=== PATIENT | male | born 1960 | race Caucasian/White ===

== ENCOUNTER 2023-11-22 10:23 | Emergency (ER) | payer OTHER, SELFPAY ==
--- NOTE | ~2023-11-22 | XR_ITS ---
EXAMINATION: XR finger 3rd RT min 2V DATE: 11/22/2023 11:08 INDICATION: Right hand third digit cellulitis. TECHNIQUE: 4 views of right hand third digit were obtained. COMPARISON: None. FINDINGS: Bone alignment is normal. No fracture. There is mild osteoarthritis of third proximal and d istal interphalangeal joints. IMPRESSION: 1. No evidence of osteomyelitis. 2. Mild polyarticular osteoarthritis. Reviewed, dictated and finalized at location A.
--- NOTE | 2023-11-22 10:26 | ED.BURNSMOKE ---
HPI - Burn/Smoke Inhalation General Chief complaint: Wound/Laceration Stated complaint: burn on rt middle finger Time Seen by Provider: 11/22/23 10:25 Source: patient Mode of arrival: ambulatory Limitations: no limitations History of Present Illness HPI Narrative: Ricki is a 63-year-old male patient presenting to the clinic today with complaints of burn to his right middle finger that occurred 4 weeks ago. He reports he was cooking on a charcoal grill and he burned the right middle finger. States the next day the finger blistered and popped. Has been washing with Dial soap and applying Neosporin ointment to the area. Had an old prescription for some amoxicillin 500 mg and he has been taking it 3 times daily.. Tetanus status is greater than 10 years. Denies any pain, fever, or chills Related Data Allergies Allergy/AdvReac Type Severity Reaction Status Date / Time No Known Allergies Allergy Verified 11/22/23 10:48 Review of Systems Review of Systems: Pertinent positives per HPI. Patient denies any fever, chills, rash, headache, visual changes, dizziness, cough, runny nose, sore throat, shortness of breath, chest pain, palpitations, nausea, vomiting, diarrhea, constipation, abdominal pain, or any urinary issues. PMFSH Comments At the time of my signature, I reviewed and agree with the nursing past medical, surgical, social, and family history. There is no relevant family history pertinent to the patient complaint. Exam Narrative: General: Well-developed, well nourished, in no apparent distress Head: Normocephalic, atraumatic. Cardio: Regular rate and rhythm, s1 and s2 normal, no murmur appreciated. Resp: Clear to auscultation bilaterally, no rhonchi, rales, wheezing or rubs. Integumentary: [place], warm, and dry, 2nd degree burn to the right middle finger with delayed healing-scabbing and redness visualized with localized swelling to the right middle finger with mild redness extending to the right MCP joint. Is able to flex and extend his finger at the PIP joint but not able to flex the MIP or DIP due to swelling and scabbing. Nontender to palpation, no drainage noted, no palpable abscess Course Course Emergency Course: Portions of this record may have been created with voice recognition software. Level of Care: Express Care Visit Vital Signs Vital signs: Vital Signs Temperature 36.2 C L 11/22/23 10:40 Pulse Rate 83 11/22/23 10:40 Respiratory Rate 18 11/22/23 10:40 Blood Pressure 166/104 H 11/22/23 10:40 Pulse Oximetry 99 11/22/23 10:40 Oxygen Delivery Room Air 11/22/23 10:40 Temperature 36.2 C L 11/22/23 10:40 Pulse Rate 83 11/22/23 10:40 Respiratory Rate 18 11/22/23 10:40 Blood Pressure 166/104 H 11/22/23 10:40 Pulse Oximetry 99 11/22/23 10:40 Oxygen Delivery Room Air 11/22/23 10:40 Vital signs reviewed MDM - Burn/Smoke Inhalation MDM Narrative Medical decision making narrative: At the time of visit patient is resting comfortably on the exam table. Patient appears to be nontoxic. Medications given: Tdap 0.5 IM Diagnostics: X-rays of the right middle finger negative for any sign of osteomyelitis. 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 Plan: Patient does not have a PCP and has not been to a doctor for some time. I suspect patient has localized cellulitis with a 2nd degree burn to the right middle finger. Will place on clindamycin and mupirocin cream and have him follow-up with Dr. RiosWhhn-od-spyr provider this week for further evaluation-wound check. Feel the patient may need/benefit to be evaluated for wound debridement/management. Blood pressure was also elevated in the clinic and this was discussed. Supportive measures were discussed with the patient and they voiced understanding discharge instructions and agrees to treatment plan. Strict Return precautions/red flags reviewed. Differential Diagnosis Differential diagnosis: Likely other (First-deg
[2023-11-22 10:40] VITALS: BP 166/104; PULSE 83; RESP 18; TEMP 36.2; O2SAT 99
[2023-11-22] MEDS: TETANUS,DIPHTHERIA,AC PERTUSSIS ADULT (0.5 ML) BOOSTRIX IM (11:16)
== END 2023-11-22 11:39 | disposition home or self-care (01) ==
PROVIDERS: Emergency Provider Nurse Practitioner Family
DX: L03.011 Cellulitis of right finger (principal); T23.221A Burn of second degree of single right finger (nail) except thumb, initial encounter; X08.8XXA Exposure to other specified smoke, fire and flames, initial encounter; Y93.G2 Activity, grilling and smoking food; Z23 Encounter for immunization
CPT/HCPCS: 73140; 90471; 90715; 99213; G0463

== ENCOUNTER 2024-09-27 15:48 | Outpatient (CLI) | payer MEDICARE, OTHER, SELFPAY ==
--- NOTE | ~2024-09-27 | XR_ITS ---
CHEST RADIOGRAPH, PA AND LATERAL CLINICAL HISTORY: R05.9 - Cough, unspecified . COMPARISON: None TECHNIQUE: PA and lateral views of the chest. FINDINGS The cardiomediastinal silhouette is unremarkable. Increased interstitial markings are identified bilaterally, findings suggesting mild pulmonary vascul ar congestion. The remainder of the lungs are clear. IMPRESSION: Mild pulmonary vascular congestion, without focal infiltrate or effusion. Reviewed, dictated and finalized at location A.
== END 2024-09-27 15:49 | disposition home or self-care (01) ==
LOC: MICIMG 15:49
PROVIDERS: PCP Nurse Practitioner Family; Visit Provider Nurse Practitioner Family
DX: R05.9 Cough, unspecified (principal)
CPT/HCPCS: 71046